=== PATIENT | male | born 1990 | race Two or more races ===

== ENCOUNTER 2024-01-05 04:29 | Emergency (ER) | payer OTHER ==
[~2024-01-05] VITALS: Ht 188 cm; Wt 81.6 kg
== END 2024-01-05 09:02 | disposition home or self-care (01) ==
LOC: ER 04:31
DX: S61.022A Laceration with foreign body of left thumb without damage to nail, initial encounter (principal); W26.0XXA Contact with knife, initial encounter; Y93.89 Activity, other specified; Y92.018 Other place in single-family (private) house as the place of occurrence of the external cause